=== PATIENT | female | born 1950 | race Caucasian/White ===

== ENCOUNTER 2017-05-07 10:20 | Observation (INO) | payer MEDICARE, MEDICAID ==
[~2017-05-07] VITALS: Ht 160 cm; Wt 113.5 kg
[2017-05-07 10:21] VITALS: BP 163/86; PULSE 66; RESP 16; TEMP 97.8; O2SAT 98
[2017-05-07] MEDS ORDERED: SODIUM CHLORIDE 0.9% FLUSH 10 ML FLUSH IVF PRN (11:15)
[2017-05-07 11:21] VITALS: O2SAT 98
[2017-05-07] MEDS ORDERED: SODIUM CHLOR 0.9% 1000 ML INJ 1,000 ML IV ONE (11:30)
--- NOTE | 2017-05-07 11:34 | PD ---
HPI Chief Complaint: Neuro Symptoms/ Deficits Time Seen by Provider: 11:08 Travel History International Travel<30 days: No Contact w/Intl Traveler<30days: No Traveled to known affect area: No History of Present Illness HPI 67-year-old female with a history of diabetes presents emergency department multiple medical complaints. Son is present to assist with the history. Son states that patient has had weakness, facial droop, slurred speech, and altered mental status is about 5 PM last night. Pt says she has a dry mouth which is the reason for her She says that she fell 3 days ago landing on her butt and hitting the back of her head. Says this is also when she had a fracture to her right ankle. The patient has been evaluated for this and was advised weightbearing as tolerated and follow-up with orthopedic patient denies loss of consciousness, headache or blurred vision. Says that she does feel dizzy however, this has been chronic she believes secondary to her medications. She has been receiving antibiotics via left PICC line and her last dose was 2 weeks ago. Patient is currently on doxycycline for her left foot wounds (diabetic wound). 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 Patient follows Dr. Graves for her foot wounds, Dr. Pennington for infectious disease and Dr. Barker for her family physician. She denies fever, chills, chest pain, shortness of breath. PFSH Past Medical History Diabetes: Yes ?: Not Social History Alcohol Use: No Tobacco Use: No Substance Use: No Allergies-Medications (Allergen,Severity, Reaction): Coded Allergies: amoxicillin (Verified Allergy, Mild, 05/07/17) metformin (Verified Allergy, Mild, 05/07/17) Reported Meds & Prescriptions Reported Meds & Active Scripts Active Reported Ventolin Hfa 18 GM Inh (Albuterol Sulfate) 90 Mcg/Act Aer 2 Puff INH Q4H PRN Carafate (Sucralfate) 1 Gram Tab 1 Gm PO TID On empty stomach Omeprazole 20 Mg Tab 20 Mg PO DAILY Novolog Flexpen Inj (Insulin Aspart) 300 Unit/3 Ml Pen SQ TIDAC PER SLIDING SCALE/MAX 30 UNITS DAILY Lisinopril 40 Mg Tab 40 Mg PO DAILY Lantus Solostar Pen Inj (Insulin Glargine) 300 Unit/3 Ml Pen 80 Units SQ BID Gentamicin Topical 0.1% Cream 1 Applic TOPICAL 3-4 TIMES DAILY Apply to foot Gabapentin 600 Mg Tab 600 Mg PO TID Ferrous Sulfate 325 Mg (65 Mg Iron) Tablet 325 Mg PO DAILY Catapres (Clonidine) 0.1 Mg Tab 0.1 Mg PO BID Lipitor (Atorvastatin Calcium) 10 Mg Tab 10 Mg PO HS Review of Systems Except as stated in HPI: all other systems reviewed are Neg Physical Exam Narrative GENERAL: Well-developed well-nourished, in no apparent distress SKIN: Focused skin assessment warm/dry. Left foot-5 cm round ulcerated wound to the heel with minimum exudate, no surrounding erythema or edema-no if angiopathic spread Left anterior foot ankle-serous drainage with granulation of the wound edges Right foot-an ankle brace, plantar aspect of right first MTP, large callus HEAD: Atraumatic. Normocephalic. EYES: Pupils round and reactive. No scleral icterus. No injection or drainage. Left pupil approximately 3 mm, right pupil 2 mm. EOMI ENT: No nasal bleeding or discharge. Mucous membranes pink and dry NECK: Trachea midline. No JVD. No lymphadenopathy. No midline tenderness CARDIOVASCULAR: Regular rate and rhythm. No murmur appreciated. RESPIRATORY: No accessory muscle use. Clear to auscultation. Breath sounds equal bilaterally. GASTROINTESTINAL: Abdomen soft, non-tender, nondistended. MUSCULOSKELETAL: No obvious deformities. No clubbing. No cyanosis. No edema. Grade 5 out of 5 strength, upper and lower extremities. Slightly weaker right hip flexion but 5 out of 5 patient. Negative pronator drift NEUROLOGICAL: Awake and alert. No obvious cranial nerve deficits. Motor grossly within normal limits. Normal speech. PSYCHIATRIC: Appropriate mood and affect; insight and judgment normal. Data Data Last Documented VS Vital Signs Date Time Temp Pulse Resp B/P (MAP) Pulse Ox O2 Delivery O2 Flow Rate FiO2 05/07/17 13:12 74 17 221/95 (137) 100 Room Air 05/07/17 10:21 97.8 Orders Orders Sepsis Workup Initiated (05/07/17 ) Electrocardiogram (05/07/17 11:08) Complete Blood Count With Diff (05/07/17 11:08) Comprehensive Metabolic Panel (05/07/17 11:08) Prothrombin Time / Inr (Pt) (05/07/17 11:08) Act Partial Throm Time (Ptt) (05/07/17 11:08) Lactic Acid Sepsis Protocol (05/07/17 11:08) Magnesium (Mg) (05/07/17 11:08) Ckmb (Isoenzyme) Profile (05/07/17 11:08) Troponin I (05/07/17 11:08) Urinalysis - C+S If Indicated (05/07/17 11:08) Blood Culture (05/07/17 11:08) Chest, Single Ap (05/07/17 11:08) Blood Glucose (05/07/17 11:08) Ecg Monitoring (05/07/17 11:08) Iv Access Insert/Monitor (05/07/17 11:08) Oximetry (05/07/17 11:08) Ct Brain W/O Iv Contrast(Rout) (05/07/17 11:08) Ct Cerv Spine W/O Contrast (05/07/17 11:08) Sodium Chloride 0.9% Flush (Ns Flush) (05/07/17 11:15) Spine, Lumbar - Ltd (Ap & Lat) (05/07/17 ) Sodium Chlor 0.9% 1000 Ml Inj (Ns 1000 M (05/07/17 11:30) Hydralazine Inj (Apresoline Inj) (05/07/17 13:30) Vancomycin Inj (Vancomycin Inj) (05/07/17 13:45) Ertapenem Inj (Invanz Inj) (05/07/17 13:45) Urine Culture (05/07/17 13:30) Lidocaine 1% Inj (Xylocaine 1% Inj) (05/07/17 14:15) Consult Infectious Disease (05/07/17 ) Consult Neurology (05/07/17 ) Echo 2d Comp With Doppler (05/07/17 ) Us Carotid Arteries Comp Bilat (05/07/17 ) Place In Observation (05/07/17 ) Vital Signs (Adult) Q4H (05/07/17 14:15) Station Operator / Telemetry .CONTINUOUS (05/07/17 14:15) Intake + Output ADONIS.QSHIFT (05/07/17 14:15) Sodium Chlor 0.9% 1000 Ml Inj (Ns 1000 M (05/07/17 14:15) Sodium Chloride 0.9% Flush (Ns Flush) (05/07/17 14:15) Sodium Chloride 0.9% Flush (Ns Flush) (05/07/17 21:00) Acetaminophen (Tylenol) (05/07/17 14:15) Ondansetron Inj (Zofran Inj) (05/07/17 14:15) Resp Oxygen Yair C Titrat 1-4 L (05/07/17 ) Pt Request For Service (05/07/17 14:15) Case Management Consult (05/07/17 14:15) Enoxaparin Inj (Lovenox Inj) (05/07/17 15:00) Scd Bilateral/Knee High ADONIS.BID (05/07/17 14:15) Jagdeep Bilateral/Knee High ADONIS.QSHIFT (05/07/17 14:15) Naloxone Inj (Narcan Inj) (05/07/17 14:15) Docusate Sodium-Senna (Mariaa-Colace) (05/07/17 21:00) Magnesium Hydroxide Liq (Milk Of Magnesi (05/07/17 15:00) Sennosides (Senokot) (05/07/17 14:15) Bisacodyl Supp (Dulcolax Supp) (05/07/17 14:15) Lactulose Liq (Lactulose Liq) (05/07/17 15:00) Lactic Acid Sepsis Protocol (05/07/17 14:15) Vancomycin Consult Pharmacy (Vancomycin (05/07/17 14:30) Ertapenem Inj (Invanz Inj) (05/08/17 09:00) Bedside Glucose ADONIS.CSUGAR (05/07/17 14:20) Blood Glucose Goal (Criteria) (05/07/17 14:20) Hypoglycemia 70 Mg/Dl Or < (05/07/17 14:20) Notify Dr: Other (05/07/17 14:20) Dextrose 50% In Alphonse (Vial) Inj (D50w (Vi (05/07/17 14:30) Glucagon Inj (Glucagon Inj) (05/07/17 14:30) Insulin Aspart Supplemtl Scale (Novolog (05/07/17 17:00) Admit Order (Ed Use Only) (05/07/17 14:15) D/C Picc Line (05/07/17 14:20) Catheter Tip Culture (05/07/17 14:20) Labs Laboratory Tests Test 05/07/17 11:19 05/07/17 12:30 05/07/17 13:30 White Blood Count 12.7 TH/MM3 Red Blood Count 5.18 MIL/MM3 Hemoglobin 12.8 GM/DL Hematocrit 40.0 % Mean Corpuscular Volume 77.2 FL Mean Corpuscular Hemoglobin 24.7 PG Mean Corpuscular Hemoglobin Concent 32.0 % Red Cell Distribution Width 19.6 % Platelet Count 380 TH/MM3 Mean Platelet Volume 7.6 FL Neutrophils (%) (Auto) 70.6 % Lymphocytes (%) (Auto) 19.1 % Monocytes (%) (Auto) 7.9 % Eosinophils (%) (Auto) 1.9 % Basophils (%) (Auto) 0.5 % Neutrophils # (Auto) 9.0 TH/MM3 Lymphocytes # (Auto) 2.4 TH/MM3 Monocytes # (Auto) 1.0 TH/MM3 Eosinophils # (Auto) 0.2 TH/MM3 Basophils # (Auto) 0.1 TH/MM3 CBC Comment DIFF FINAL Differential Comment Erythrocyte Sedimentation Rate 36 mm/hr Blood Urea Nitrogen 22 MG/DL Creatinine 1.59 MG/DL Random Glucose 198 MG/DL Total Protein 7.6 GM/DL Albumin 2.9 GM/DL Calcium Level 9.0 MG/DL Magnesium Level 1.6 MG/DL Alkaline Phosphatase 204 U/L Aspartate Amino Transf (AST/SGOT) 25 U/L Alanine Aminotransferase (ALT/SGPT) 30 U/L Total Bilirubin 0.4 MG/DL Sodium Level 135 MEQ/L Potassium Level 4.9 MEQ/L Chloride Level 101 MEQ/L Carbon Dioxide Level 25.9 MEQ/L Anion Gap 8 MEQ/L Estimat Glomerular Filtration Rate 32 ML/MIN Lactic Acid Level 2.3 mmol/L Total Creatine Kinase 48 U/L Troponin I 0.03 NG/ML Prothrombin Time 10.5 SEC Prothromb Time International Ratio 1.0 RATIO Activated Partial Thromboplast Time 25.0 SEC Urine Color YELLOW Urine Turbidity HAZY Urine pH 6.5 Urine Specific [place] 1.016 Urine Protein 300 mg/dL Urine Glucose (UA) NEG mg/dL Urine Ketones NEG mg/dL Urine Occult Blood SMALL Urine Nitrite POS Urine Bilirubin NEG Urine Urobilinogen LESS THAN 2.0 MG/DL Urine Leukocyte Esterase LARGE Urine RBC 4 /hpf Urine WBC /hpf Urine WBC Clumps MANY Urine Squamous Epithelial Cells <1 /hpf Urine Transitional Epithelial Cells 1 /hpf Urine Bacteria MANY /hpf Urine Hyaline Casts 17 /lpf Urine Mucus FEW /lpf Microscopic Urinalysis Comment CATH-CULTURE IND MDM Medical Decision Making Medical Screen Exam Complete: Yes Emergency Medical Condition: Yes Differential Diagnosis ICH, hypoglycemia, TIA, CVA Narrative Course 67-year-old female with a history of diabetes presents emergency department multiple medical complaints. Son is present to assist with the history. Son states that patient has had weakness, facial droop, slurred speech, and altered mental status is about 5 PM last night. Pt says she has a dry mouth which is the reason for her She says that she fell 3 days ago landing on her butt and hitting the back of her head. Says this is also when she had a fracture to her right ankle. The patient has been evaluated for this and was advised weightbearing as tolerated and follow-up with orthopedic patient denies loss of consciousness, headache or blurred vision. Says that she does feel dizzy however, this has been chronic she believes secondary to her medications. She has been receiving antibiotics via left PICC line and her last dose was 2 weeks ago. Patient is currently on doxycycline for her left foot wounds (diabetic wound). 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 Patient follows Dr. Graves for her foot wounds, Dr. Pennington for infectious disease and Dr. Barker for her family physician. He denies fever, chills, chest pain, shortness of breath. Vital signs stable. Physical exam findings can significant for anisocoria, pupils round reactive to light, right foot diabetic ulcers. I do not have previous records on this patient. This is the patient's first encounter at this hospital. EKG shows sinus rhythm without STEMI changes. T-wave inversions in lead I, aVL , V3-V6. no previous tracing for comparison. POC BGL [address] 05/07/17 1108 Signed Impressions: Service Date/Time: Sunday, May 07, 2017 11:30 - CONCLUSION: No acute disease. Andres Daly Jr., MD Cervical Spine CT 05/07/17 1108 Signed Impressions: Service Date/Time: Sunday, May 07, 2017 11:30 - CONCLUSION: 1. No fracture or dislocation. 2. Degenerative changes as detailed above. Andres Daly Jr., MD Lumbar Spine X-Ray 05/07/17 0000 Signed Impressions: Service Date/Time: Sunday, May 07, 2017 12:10 - CONCLUSION: 1. No acute lumbar spine abnormality is identified. There is degenerative disc disease at L4-L5 and L5-S1 along with facet arthrosis. 2. There is 10 mm of anterolisthesis of L5 on S1. 3. Severe atherosclerotic disease. Travis Conrad MD Patient started on Vancomycin and Invanz as this was patient's previous infusion and she does have an allergy to amoxicillin.. 1 L IV fluids administered. After further discussion with the son, it appears that patient has had a fluctuating mental status with confusion since yesterday. He states that she has been repetitive with her words it is not completely make sense. I explained that my findings did not demonstrate confusion however, based on the history and physical along with lab findings I recommend patient be placed in observation for IV antibiotics, diabetic ulcer, r/o sepsis. Blood pressure became elevated, hydralazine administered as she was complaining of a mild, waxing and waning headache. Note that she only takes clonidine for her blood pressure. Pt will be admitted for obs. Sepsis Criteria SIRS Criteria (2 or more): WBC > 22193, < 4000 or > 10% bands Sepsis Criteria (SIRS+source): Infect source susp/known (Left diabetic ulcer) Severe Sepsis (+one): Lactate >2 Diagnosis Primary Impression: Diabetic ulcer of foot, limited to breakdown of skin Qualified Codes: E11.621 - Type 2 diabetes mellitus with foot ulcer; L97.421 - Non-pressure chronic ulcer of left heel and midfoot limited to breakdown of skin Additional Impression: Altered mental status Qualified Codes: R41.82 - Altered mental status, unspecified Admitting Information Admitting Physician Requests: Observation Condition: Stable Amita Azevedo May 07, 2017 11:34
--- NOTE | 2017-05-07 11:41 | RADRPT ---
EXAM DATE/TIME: 05/07/2017 11:30 [facility] COMPARISON: No previous studies available for comparison. INDICATIONS : Trauma, fall three days ago. RADIATION DOSE: 34.63 CTDIvol (mGy) MEDICAL HISTORY : Diabetes mellitus type 2. SURGICAL HISTORY : None. ENCOUNTER: Initial ACUITY: 1 day PAIN SCALE: 0/10 LOCATION: cranial TECHNIQUE: Multiple contiguous axial images were obtained of the head. Using automated exposure control and adj ustment of the mA and/or kV according to patient size, radiation dose was kept as low as reasonably a chievable to obtain optimal diagnostic quality images. DICOM format image data is available electro nically for review and comparison. FINDINGS: CEREBRUM: The ventricles are normal for age. No evidence of midline shift, mass lesion, hemorrhage or acute in farction. No extra-axial fluid collections are seen. POSTERIOR FOSSA: The cerebellum and brainstem are intact. The 4th ventricle is midline. The cerebellopontine angle i s unremarkable. EXTRACRANIAL: The visualized portion of the orbits is intact. SKULL: The calvaria is intact. No evidence of skull fracture. CONCLUSION: No acute disease. Andres Daly Jr., MD on May 07, 2017 at 11:36 Board Certified Radiologist. This report was verified electronically.
[2017-05-07 12:02] LABS: LACTIC ACID SEPSIS PROTOCOL 2.3 mmol/L (0.4-2.0)
[2017-05-07 12:10] LABS: ALBUMIN 2.9 GM/DL (3.4-5.0); ALT (GPT) 30 U/L (10-53); AST (GOT) 25 U/L (15-37); BICARBONATE 25.9 MEQ/L (21.0-32.0); BLOOD UREA NITROGEN 22 MG/DL (7-18); CHLORIDE 101 MEQ/L (98-107); CREATININE 1.59 MG/DL (0.50-1.00); GLOMERULAR FILTRATION RATE 32 ML/MIN (>89); GLUCOSE,RANDOM 198 MG/DL (74-106); MAGNESIUM 1.6 MG/DL (1.5-2.5); SODIUM (NA) 135 MEQ/L (136-145)
[2017-05-07 12:12] LABS: ALKALINE PHOSPHATASE 204 U/L (45-117); TOTAL BILIRUBIN ADULT 0.4 MG/DL (0.2-1.0); TOTAL PROTEIN 7.6 GM/DL (6.4-8.2); TROPONIN I 0.03 NG/ML (0.02-0.05)
--- NOTE | 2017-05-07 12:13 | RADRPT ---
EXAM DATE/TIME: 05/07/2017 11:30 [facility] COMPARISON: No previous studies available for comparison. INDICATIONS : Trauma, fall three days ago. RADIATION DOSE: 27.40 CTDIvol (mGy) MEDICAL HISTORY : Diabetes mellitus type 2. SURGICAL HISTORY : None. ENCOUNTER: Initial ACUITY: 3 days PAIN SCALE: 0/10 LOCATION: neck TECHNIQUE: Volumetric scanning of the cervical spine was performed. Multiplanar reconstructions in the sagittal, coronal and oblique axial planes were performed. Using automated exposure control and adjustment o f the mA and/or kV according to patient size, radiation dose was kept as low as reasonably achievable to obtain optimal diagnostic quality images. DICOM format image data is available electronically f or review and comparison. FINDINGS: VERTEBRAE: Normal vertebral body height. ALIGNMENT: There is loss of the natural lordosis with a gentle kyphosis centered at C5. A mild grade 1 anterolis thesis of C4 on C5. Calcified plaque involving the carotid arteries bilaterally. 1 cm low-density nodule involving the ri ght lobe of the thyroid. C2-C3: The bony spinal canal is normal in size. No evidence of disc bulge or herniation. The neural forami na are bilaterally patent. C3-C4: No disc bulge or protrusion. Central canal is patent. Prominent bony uncovertebral hypertrophy on the left generating moderate left neural foraminal narrowing. The right remains patent. C4-C5: There is an anterolisthesis with broad-based disc osteophyte complex slightly eccentric to the left w ith mild narrowing of the left lateral recess. No abutment of the cord or central canal stenosis. Rig ht lateral recess remains patent. Bony uncovertebral hypertrophy generates mild right and moderate le ft neural foraminal narrowing. C5-C6: Disc space narrowing with a broad-based disc osteophyte complex slightly eccentric to the left with a butment of the cord. Narrowing of the lateral recesses bilaterally. Bony uncovertebral hypertrophy ge nerates moderate bilateral neural foraminal narrowing. C6-C7: The bony spinal canal is normal in size. No evidence of disc bulge or herniation. The neural forami na are bilaterally patent. C7-T1: The bony spinal canal is normal in size. No evidence of disc bulge or herniation. The neural forami na are bilaterally patent. CONCLUSION: 1. No fracture or dislocation. 2. Degenerative changes as detailed above. Andres Daly Jr., MD on May 07, 2017 at 12:07 Board Certified Radiologist. This report was verified electronically.
--- NOTE | 2017-05-07 12:28 | RADRPT ---
EXAM DATE/TIME: 05/07/2017 12:10 [facility] COMPARISON: No previous studies available for comparison. INDICATIONS : Lower back pain post fall. MEDICAL HISTORY : Diabetes mellitus type II. SURGICAL HISTORY : None. ENCOUNTER: Initial ACUITY: 1 week PAIN SCORE: 9/10 LOCATION: Bilateral lower back FINDINGS: 3 views of the lumbar spine demonstrate 5 [id number] lumbar vertebral bodies. The bones appear u nder mineralized. No fracture or compression deformity is present. There is 10 mm of anterolisthesis of L5 on S1. No definite pars defects are seen but no oblique views were obtained. There is facet hyp ertrophy at L4-L5 and L5-S1. Mild decreased disc height is present at L4-L5 and there is severe decre ased disc height at L5-S1. The pelvic bones and soft tissues demonstrate no acute finding. Bowel staple line overlies the left m idabdomen. There is severe atherosclerotic disease of the abdominal aorta and common iliac arteries. CONCLUSION: 1. No acute lumbar spine abnormality is identified. There is degenerative disc disease at L4-L5 and L 5-S1 along with facet arthrosis. 2. There is 10 mm of anterolisthesis of L5 on S1. 3. Severe atherosclerotic disease. Travis Conrad MD on May 07, 2017 at 12:22 Board Certified Radiologist. This report was verified electronically.
[2017-05-07 12:51] LABS: BASOPHIL # 0.1 TH/MM3 (0-0.2); BASOPHIL % 0.5 % (0.0-2.0); EOSINOPHIL # 0.2 TH/MM3 (0-0.4); EOSINOPHIL % 1.9 % (0.0-4.0); HEMOGLOBIN 12.8 GM/DL (11.6-15.3); LYMPH % 19.1 % (9.0-44.0); LYMPHOCYTE # 2.4 TH/MM3 (1.0-4.8); MEAN CELL VOLUME 77.2 FL (80.0-100.0); MEAN CORPUSCULAR HEMOGLOBIN 24.7 PG (27.0-34.0); MEAN PLATELET VOLUME 7.6 FL (7.0-11.0); MONO % 7.9 % (0.0-8.0); NEUT % 70.6 % (16.0-70.0); PLATELET COUNT 380 TH/MM3 (150-450); RED BLOOD COUNT 5.18 MIL/MM3 (4.00-5.30); RED CELL DISTRIBUTION WIDTH 19.6 % (11.6-17.2); WHITE BLOOD COUNT 12.7 TH/MM3 (4.0-11.0)
[2017-05-07 13:03] LABS: PROTHROMBIN TIME - PATIENT 10.5 SEC (9.8-11.6)
[2017-05-07 13:12] VITALS: BP 221/95; PULSE 74; RESP 17; O2SAT 100
--- NOTE | 2017-05-07 13:20 | RADRPT ---
EXAM DATE/TIME: 05/07/2017 12:12 [facility] COMPARISON: No previous studies available for comparison. INDICATIONS : Shortness of breath. MEDICAL HISTORY : Diabetes mellitus type II. SURGICAL HISTORY : None. ENCOUNTER: Initial ACUITY: 1 year PAIN SCORE: 0/10 LOCATION: Bilateral chest FINDINGS: Presumed left-sided PICC line with tip in the brachiocephalic/SVC junction. No significant focal pleu ral or parenchymal opacities. Cardiomediastinal contours are within normal limits given portable tech nique. Bony thorax is intact. CONCLUSION: 1. No acute cardiopulmonary disease. Joseph Alvarez MD on May 07, 2017 at 13:16 Board Certified Radiologist. This report was verified electronically.
[2017-05-07] MEDS ORDERED: hydrALAZINE HCL 20 MG/ML VIAL IV PUSH ONE ×2 (13:30→15:00)
[2017-05-07] MEDS ORDERED: ERTAPENEM SODIUM 1000 MG VIAL IM ONE (13:45)
[2017-05-07] MEDS ORDERED: VANCOMYCIN INJ 1,750 MG in SODIUM CHLORID 0.9% 500 ML INJ 500 ML IV ONE (13:45)
[2017-05-07] MEDS ORDERED: CLON.1 PO (13:58)
[2017-05-07] MEDS ORDERED: NOVOINJ3 SQ (13:58)
[2017-05-07] MEDS ORDERED: LIPI10TA PO (13:58)
[2017-05-07] MEDS ORDERED: CARA1TAB6 PO (13:58)
[2017-05-07] MEDS ORDERED: OMEP20TA93 PO (13:58)
[2017-05-07] MEDS ORDERED: LANTINJ SQ (13:58)
[2017-05-07] MEDS ORDERED: GENT0.1C TOPICAL (13:58)
[2017-05-07] MEDS ORDERED: VENTAER INH (13:58)
[2017-05-07] MEDS ORDERED: GABA600T PO (13:58)
[2017-05-07] MEDS ORDERED: LISI40TA PO (13:58)
[2017-05-07] MEDS ORDERED: FERR325T18 PO (13:58)
[2017-05-07 14:12] LABS: BACTERIA, URINE MANY /hpf; BILIRUBIN, URINE NEG (NEG); BLOOD, URINE SMALL (NEG); GLUCOSE,URINE NEG (NEG); HYALINE CAST, URINE 17 /lpf (RARE); KETONE, URINE NEG (NEG); MUCUS URINE FEW /lpf (OCC); NITRITE,URINE POS (NEG); PH, URINE 6.5 (5.0-8.5); SQUAMOUS EPITHELIAL CELL URINE <1 /hpf (0-5); TRANSITIONAL EPI CELLS, URINE 1 /hpf; URINE COLOR YELLOW (YELLW/STRAW); URINE LEUKOCYTE ESTERASE LARGE (NEG); WHITE BLOOD CELL CLUMPS MANY
[2017-05-07] MEDS ORDERED: BISACODYL 10 MG SUPP RECTAL PRN (14:15)
[2017-05-07] MEDS ORDERED: ACETAMINOPHEN 325 MG TAB PO PRN (14:15)
[2017-05-07] MEDS ORDERED: LIDOCAINE HCL 1% 20 ML VIAL INFIL ONE (14:15)
[2017-05-07] MEDS ORDERED: SODIUM CHLORIDE 0.9% FLUSH 10 ML FLUSH IV FLUSH PRN (14:15)
[2017-05-07] MEDS ORDERED: SODIUM CHLOR 0.9% 1000 ML INJ 1,000 ML IV SCH (14:15)
[2017-05-07] MEDS ORDERED: NALOXONE HCL 0.4 MG/ML AMP IV PUSH PRN (14:15)
[2017-05-07] MEDS ORDERED: ONDANSETRON HCL 4 MG/2 ML VIAL IVP PRN (14:15)
[2017-05-07] MEDS ORDERED: SENNOSIDES 8.6 MG TAB PO PRN (14:15)
[2017-05-07] MEDS ORDERED: GLUCAGON 1 MG/ML VIAL OTHER PRN (14:30)
[2017-05-07] MEDS ORDERED: Vancomycin Consult Pharmacy 1 EA OTHER SCH (14:30)
[2017-05-07] MEDS ORDERED: ALBUTEROL SULFATE 90 MCG/ACT HFA 8 GM INHALER INH PRN (14:30)
[2017-05-07] MEDS ORDERED: DEXTROSE 50% IN WATER 50 ML VIAL(D50) IV PUSH PRN (14:30)
[2017-05-07 14:57] VITALS: BP 210/94; PULSE 87; RESP 18; O2SAT 98
[2017-05-07] MEDS ORDERED: ENOXAPARIN SODIUM 40 MG/0.4 ML SYRINGE SQ SCH (15:00)
[2017-05-07] MEDS ORDERED: LACTULOSE SYRUP 20 GM/30 ML CUP PO PRN (15:00)
[2017-05-07] MEDS ORDERED: VANCOMYCIN INJ 1,000 MG in SODIUM CHLOR 0.9% 250 ML INJ 250 ML IV SCH (15:00)
[2017-05-07] MEDS ORDERED: MAGNESIUM HYDROXIDE SUSP 30 ML CUP PO PRN (15:00)
--- NOTE | 2017-05-07 15:20 | HHI.HP ---
HPI Service [facility] Primary Care Physician Unknown Admission Diagnosis diabetic ulcer, r/o sepsis Diagnoses: Chief Complaint: Altered mental status, multiple falls, diabetic wounds Travel History International Travel<30 Days: No Contact w/Intl Traveler <30 Da: No Traveled to Known Affected Are: No History of Present Illness The patient is a very pleasant 67-year-old female with a history of diabetes mellitus with neuropathy, hypertension, hyperlipidemia, COPD, PAD with revascularization in the past, presents to the emergency department with multiple medical complaints. Son is present to assist with the history. Son states that patient has had weakness, facial droop, slurred speech, and altered mental status since about 5 PM last night. Pt says she has a dry mouth which is the reason for her to have this symptoms and also she has a recent cold. She says that she fell 3 days ago landing on her butt and hitting the back of her head. Says this is also when she had a fracture to her right ankle. The patient has been evaluated for this and was advised weightbearing as tolerated and follow-up with orthopedic as OP.Denies loss of consciousness, headache or blurred vision. Says that she does feel dizzy however, this has been chronic she believes secondary to her medications. She has been receiving antibiotics via left PICC line and her last dose was 2 weeks ago. Patient is currently on doxycycline for her left foot wounds (diabetic wound). 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 Patient follows Dr. Graves podiatry for her foot wounds, Dr. Pennington for infectious disease and Dr. Barker for her family physician. She denies fever, chills, chest pain, shortness of breath. Her speech is back to baseline at this time. She is also taking gabapentin and norco as OP. Review of Systems ROS Limitations: Clinical Condition Except as stated in HPI: all other systems reviewed are Neg Past Family Social History Past Medical History diabetes mellitus with neuropathy, hypertension, hyperlipidemia, COPD, PAD with revascularization in the past Past Surgical History Hysterectomy PAD with revascularization Hemicolectomy Left second toe amputation Reported Medications Reported Meds & Active Scripts Active Reported Ventolin Hfa 18 GM Inh (Albuterol Sulfate) 90 Mcg/Act Aer 2 Puff INH Q4H PRN Carafate (Sucralfate) 1 Gram Tab 1 Gm PO TID On empty stomach Omeprazole 20 Mg Tab 20 Mg PO DAILY Novolog Flexpen Inj (Insulin Aspart) 300 Unit/3 Ml Pen SQ TIDAC PER SLIDING SCALE/MAX 30 UNITS DAILY Lisinopril 40 Mg Tab 40 Mg PO DAILY Lantus Solostar Pen Inj (Insulin Glargine) 300 Unit/3 Ml Pen 80 Units SQ BID Gentamicin Topical 0.1% Cream 1 Applic TOPICAL 3-4 TIMES DAILY Apply to foot Gabapentin 600 Mg Tab 600 Mg PO TID Ferrous Sulfate 325 Mg (65 Mg Iron) Tablet 325 Mg PO DAILY Catapres (Clonidine) 0.1 Mg Tab 0.1 Mg PO BID Lipitor (Atorvastatin Calcium) 10 Mg Tab 10 Mg PO HS Allergies: Coded Allergies: amoxicillin (Verified Allergy, Mild, 05/07/17) metformin (Verified Allergy, Mild, 05/07/17) Family History Father had a stroke at age 50, also history of hypertension hyperlipidemia and diabetes Mother with heart problems Social History Quit smoking 25 years ago. Used to smoke 2 pack per day since the age of 14. Denies alcohol use or illicit drug use. Physical Exam Vital Signs Vital Signs Date Time Temp Pulse Resp B/P (MAP) Pulse Ox O2 Delivery O2 Flow Rate FiO2 05/07/17 14:57 87 18 210/94 (132) 98 05/07/17 13:12 74 17 221/95 (137) 100 Room Air 05/07/17 11:21 98 Room Air 05/07/17 10:59 100 Room Air 05/07/17 10:21 97.8 66 16 163/86 (111) 98 Room Air Physical Exam GENERAL: This is a very pleasant 67-year-old female, well-nourished, well- developed patient, in no apparent distress. SKIN:Left foot-5 cm round ulcerated wound to the heel with minimum exudate, no surrounding erythema or edema-no if angiopathic spread Left anterior foot ankle-serous drainage with granulation of the wound edges Right foot-an ankle brace, plantar aspect of right first MTP, large callus HEAD: Atraumatic. Normocephalic. No temporal or scalp tenderness. EYES: Pupils equal round and reactive. Extraocular motions intact. No scleral icterus. No injection or drainage. ENT: Nose without bleeding, purulent drainage or septal hematoma. Throat without erythema, tonsillar hypertrophy or exudate. Uvula midline. Airway patent. NECK: Trachea midline. No JVD or lymphadenopathy. Supple, nontender, no meningeal signs. CARDIOVASCULAR: Regular rate and rhythm without murmurs, gallops, or rubs. RESPIRATORY: Clear to auscultation. Breath sounds equal bilaterally. No wheezes , rales, or rhonchi. GASTROINTESTINAL: Abdomen soft, non-tender, nondistended. No hepato-splenomegaly , or palpable masses. No guarding. MUSCULOSKELETAL: Left second toe amputation. Extremities without clubbing, cyanosis, or edema. No joint tenderness, effusion, or edema noted. No calf tenderness. Negative Homans sign bilaterally. NEUROLOGICAL: Awake and alert. Cranial nerves II through XII intact. Motor and sensory grossly within normal limits. Five out of 5 muscle strength in all muscle groups. Normal speech. Laboratory Laboratory Tests Test 05/07/17 11:19 05/07/17 12:30 05/07/17 13:30 White Blood Count 12.7 Red Blood Count 5.18 Hemoglobin 12.8 Hematocrit 40.0 Mean Corpuscular Volume 77.2 Mean Corpuscular Hemoglobin 24.7 Mean Corpuscular Hemoglobin Concent 32.0 Red Cell Distribution Width 19.6 Platelet Count 380 Mean Platelet Volume 7.6 Neutrophils (%) (Auto) 70.6 Lymphocytes (%) (Auto) 19.1 Monocytes (%) (Auto) 7.9 Eosinophils (%) (Auto) 1.9 Basophils (%) (Auto) 0.5 Neutrophils # (Auto) 9.0 Lymphocytes # (Auto) 2.4 Monocytes # (Auto) 1.0 Eosinophils # (Auto) 0.2 Basophils # (Auto) 0.1 CBC Comment DIFF FINAL Differential Comment Blood Urea Nitrogen 22 Creatinine 1.59 Random Glucose 198 Total Protein 7.6 Albumin 2.9 Calcium Level 9.0 Magnesium Level 1.6 Alkaline Phosphatase 204 Aspartate Amino Transf (AST/SGOT) 25 Alanine Aminotransferase (ALT/SGPT) 30 Total Bilirubin 0.4 Sodium Level 135 Potassium Level 4.9 Chloride Level 101 Carbon Dioxide Level 25.9 Anion Gap 8 Estimat Glomerular Filtration Rate 32 Lactic Acid Level 2.3 Total Creatine Kinase 48 Troponin I 0.03 Prothrombin Time 10.5 Prothromb Time International Ratio 1.0 Activated Partial Thromboplast Time 25.0 Urine Color YELLOW Urine Turbidity HAZY Urine pH 6.5 Urine Specific [place] 1.016 Urine Protein 300 Urine Glucose (UA) NEG Urine Ketones NEG Urine Occult Blood SMALL Urine Nitrite POS Urine Bilirubin NEG Urine Urobilinogen LESS THAN 2.0 Urine Leukocyte Esterase LARGE Urine RBC 4 Urine WBC Urine WBC Clumps MANY Urine Squamous Epithelial Cells <1 Urine Transitional Epithelial Cells 1 Urine Bacteria MANY Urine Hyaline Casts 17 Urine Mucus FEW Microscopic Urinalysis Comment CATH-CULTURE IND Date/Time Source Procedure Growth Status 05/07/17 11:19 Blood Peripheral Aerobic Blood Culture Pending Received 05/07/17 11:19 Blood Peripheral Anaerobic Blood Culture Pending Received 05/07/17 13:30 Urine Catheterized Urine Urine Culture Pending Received Result Diagram: 05/07/17 1119 05/07/17 1119 Imaging Last Impressions Head CT 05/07/17 1108 Signed Impressions: Service Date/Time: Sunday, May 07, 2017 11:30 - CONCLUSION: No acute disease. Andres Daly Jr., MD Chest X-Ray 05/07/17 1108 Signed Impressions: Service Date/Time: Sunday, May 07, 2017 12:12 - CONCLUSION: 1. No acute cardiopulmonary disease. Joseph Alvarez MD Cervical Spine CT 05/07/17 1108 Signed Impressions: Service Date/Time: Sunday, May 07, 2017 11:30 - CONCLUSION: 1. No fracture or dislocation. 2. Degenerative changes as detailed above. Andres Daly Jr., MD Lumbar Spine X-Ray 05/07/17 0000 Signed Impressions: Service Date/Time: Sunday, May 07, 2017 12:10 - CONCLUSION: 1. No acute lumbar spine abnormality is identified. There is degenerative disc disease at L4-L5 and L5-S1 along with facet arthrosis. 2. There is 10 mm of anterolisthesis of L5 on S1. 3. Severe atherosclerotic disease. Travis Conrad MD Carotid Artery Ultrasound 05/07/17 0000 Signed Impressions: Service Date/Time: Sunday, May 07, 2017 15:36 - CONCLUSION: 1. Patent carotid arteries bilaterally. 2. Antegrade flow involving both vertebral arteries. MD Westley Carpenter Jr. VTE Risk Assessment Caprini VTE Risk Assessment: Mod/High Risk (score >= 2) Caprini Risk Assessment Model Point Value = 1 Point Value = 2 Point Value = 3 Point Value = 5 Age 41-60 Minor surgery BMI > 25 kg/m2 Swollen legs Varicose veins or History of unexplained or recurrent spontaneous Oral contraceptives or hormone replacement Sepsis (< 1 month) Serious lung disease, including pneumonia (< 1 month) Abnormal pulmonary function Acute myocardial infarction Congestive heart failure (< 1 month) History of inflammatory bowel disease Medical patient at bed rest Age 61-74 Arthroscopic surgery Major open surgery (> 45 min) Laparoscopic surgery (> 45 min) Malignancy Confined to bed (> 72 hours) Immobilizing plaster cast Central venous access Age >= 75 History of VTE Family history of VTE Factor V Leiden Prothrombin [id number] Lupus anticoagulant Anticardiolipin antibodies Elevated serum homocysteine Heparin-induced thrombocytopenia Other congenital or acquired thrombophilia Stroke (< 1 month) Elective arthroplasty Hip, pelvis, or leg fracture Acute spinal cord injury (< 1 month) Prophylaxis Regimen Total Risk Factor Score Risk Level Prophylaxis Regimen 0-1 Low Early ambulation 2 Moderate Order ONE of the following: *Sequential Compression Device (SCD) *Heparin 5000 units SQ BID 3-4 Higher Order ONE of the following medications: *Heparin 5000 units SQ TID *Enoxaparin/Lovenox 40 mg SQ daily (WT < 150 kg, CrCl > 30 mL/min) *Enoxaparin/Lovenox 30 mg SQ daily (WT < 150 kg, CrCl > 10-29 mL/min) *Enoxaparin/Lovenox 30 mg SQ BID (WT < 150 kg, CrCl > 30 mL/min) AND/OR *Sequential Compression Device (SCD) 5 or more Highest Order ONE of the following medications: *Heparin 5000 units SQ TID (Preferred with Epidurals) *Enoxaparin/Lovenox 40 mg SQ daily (WT < 150 kg, CrCl > 30 mL/min) *Enoxaparin/Lovenox 30 mg SQ daily (WT < 150 kg, CrCl > 10-29 mL/min) *Enoxaparin/Lovenox 30 mg SQ BID (WT < 150 kg, CrCl > 30 mL/min) AND *Sequential Compression Device (SCD) Assessment and Plan Assessment and Plan 67-year-old female presents to the emergency department with multiple medical complaints. Diabetic ulcer of foot Possible sepsis patient with leukocytosis, elevated lactic acid, tachycardic, source of infection possible left diabetic foot wound, UTI. Patient was recently on antibiotics vancomycin and Invanz she finish course of IV antibiotics 2 weeks ago. Follows with Dr. Estrada infectious disease as outpatient. Patient has a PICC line. Concern for infection. Discontinue PICC line and send tip for cultures. Check blood cultures, urine cultures. Monitor vital signs. Repeat lactic acid. Start Invanz and vancomycin IV. Consult infectious disease specialist. Start on IV fluids Consult podiatry Acute encephalopathy likely secondary to infection, dehydration. Start IV fluids. Infection management as above. Patient also with syncope and multiple falls. Check 2D echo and ultrasound of the carotids. Check B12 Percent patient also has slurred speech and right facial droop prior to admission. TIA rule out CVA. Symptoms however resolved. CT scan of the head reviewed and no acute findings. Consult neurology, appreciate recommendations. Check EEG, MRI. Hypertension. Uncontrolled on admission. Restart home medications. Vasotec as needed. Metoprolol as needed. Monitor vital signs and adjust medications as needed. Diabetes mellitus insulin-dependent. Resume home insulin as appropriate, Accu- Cheks, insulin sliding scale Hyperlipidemia. Restart home medications History of PAD with revascularization. Restart home medications. DVT prophylaxis Lovenox subcu Discussed Condition With Patient, nurse, ED physician/Gerda Inman MD May 07, 2017 15:20
[2017-05-07 16:14] VITALS: BP 147/42; PULSE 114; RESP 18; O2SAT 98
--- NOTE | 2017-05-07 16:24 | RADRPT ---
EXAM DATE/TIME: 05/07/2017 15:36 [place] COMPARISON: No previous studies available for comparison. INDICATIONS : Syncope. MEDICAL HISTORY : Diabetes. Weakness. Facial droop. Slurred speech. Altered mental status. SURGICAL HISTORY : None. ENCOUNTER: Initial ACUITY: 1 day PAIN SCORE: 5/10 LOCATION: Bilateral neck PEAK SYSTOLIC VELOCITIES (cm/sec): ICA/CCA RATIO: Right: 1.1 Left: 1.0 ICA: Right: 114 Left: 103 CCA: Right: 102 Left: 103 ECA: Right: 143 Left: 124 VERTEBRAL: Right: 49 antegrade Left: 101 antegrade Elevated flow velocities and ICA/CCA ratios have been found to correlate with increased degrees of vessel stenosis, calculated as percentage of diameter relative to a normal segment of distal ICA/CCA FINDINGS: RIGHT CAROTID: Scattered atherosclerotic plaque throughout the carotid bulb and proximal ICA. No significant stenosi s is visualized. The waveforms are within normal limits. LEFT CAROTID: Scattered atherosclerotic plaque throughout the common carotid and proximal ICA. No significant steno sis is visualized. The waveforms are within normal limits. VERTEBRAL ARTERIES: Antegrade flow is seen in both vertebral arteries. MISCELLANEOUS: None. CONCLUSION: 1. Patent carotid arteries bilaterally. 2. Antegrade flow involving both vertebral arteries. Andres Daly Jr., MD on May 07, 2017 at 16:20 Board Certified Radiologist. This report was verified electronically.
--- NOTE | 2017-05-07 16:54 | PD.CONS ---
History of Present Illness Service Neurology Consult Requested By medical Reason for Consult confusion Primary Care Physician Unknown History of Present Illness 67-year-old female with hx of dm admitted for various symptoms. c/o of weakness , speech changes since yesterday. seen by id. found to have a uti. renal failure. pt c/o of nausea, tremulousness. denies hx of etoh use. bp in er 212/95 at one point. PFSH Past Medical History Diabetes: Yes HTN HLD COPD GERD Social History Alcohol Use: No Tobacco Use: No Substance Use: No Allergies-Medications (Allergen,Severity, Reaction): Coded Allergies: amoxicillin (Verified Allergy, Mild, 05/07/17) metformin (Verified Allergy, Mild, 05/07/17) Reported Meds & Prescriptions Reported Meds & Active Scripts Active Reported Ventolin Hfa 18 GM Inh (Albuterol Sulfate) 90 Mcg/Act Aer 2 Puff INH Q4H PRN Carafate (Sucralfate) 1 Gram Tab 1 Gm PO TID On empty stomach Omeprazole 20 Mg Tab 20 Mg PO DAILY Novolog Flexpen Inj (Insulin Aspart) 300 Unit/3 Ml Pen SQ TIDAC PER SLIDING SCALE/MAX 30 UNITS DAILY Lisinopril 40 Mg Tab 40 Mg PO DAILY Lantus Solostar Pen Inj (Insulin Glargine) 300 Unit/3 Ml Pen 80 Units SQ BID Gentamicin Topical 0.1% Cream 1 Applic TOPICAL 3-4 TIMES DAILY Apply to foot Gabapentin 600 Mg Tab 600 Mg PO TID Ferrous Sulfate 325 Mg (65 Mg Iron) Tablet 325 Mg PO DAILY Catapres (Clonidine) 0.1 Mg Tab 0.1 Mg PO BID Lipitor (Atorvastatin Calcium) 10 Mg Tab 10 Mg PO HS Review of Systems Except as stated in HPI: all other systems reviewed are Neg Review of Systems All other ROS: ROS reviewed as documented in chart Past Family Social History Allergies: Coded Allergies: amoxicillin (Verified Allergy, Mild, 05/07/17) metformin (Verified Allergy, Mild, 05/07/17) Active Ordered Medications Current Medications Medications (Trade) Dose Ordered Sig/Patel Route Start Time Stop Time Status Last Admin (NS Flush) 2 ml UNSCH PRN IVF 05/07/17 11:15 Sodium Chloride 1,000 ml @ 100 mls/hr Q10H IV 05/07/17 14:15 05/07/17 16:17 (NS Flush) 2 ml UNSCH PRN IV FLUSH 05/07/17 14:15 (NS Flush) 2 ml BID IV FLUSH 05/07/17 21:00 (Tylenol) 650 mg Q4H PRN PO 05/07/17 14:15 (Zofran Inj) 4 mg Q6H PRN IVP 05/07/17 14:15 (Lovenox Inj) 40 mg Q24H SQ 05/07/17 15:00 05/07/17 15:23 (Narcan Inj) 0.4 mg UNSCH PRN IV PUSH 05/07/17 14:15 (Mariaa-Colace) 1 tab BID PO 05/07/17 21:00 (Milk Of Magnesia Liq) 30 ml Q12H PRN PO 05/07/17 15:00 (Senokot) 17.2 mg Q12H PRN PO 05/07/17 14:15 (Dulcolax Supp) 10 mg DAILY PRN RECTAL 05/07/17 14:15 (Lactulose Liq) 30 ml DAILY PRN PO 05/07/17 15:00 Pharmacy Profile Note 0 ml @ 0 mls/hr UNSCH OTHER 05/07/17 14:30 (INVanz INJ) 1,000 mg DAILY IM 05/08/17 09:00 UNV (D50w (Vial) Inj) 50 ml UNSCH PRN IV PUSH 05/07/17 14:30 (Glucagon Inj) 1 mg UNSCH PRN OTHER 05/07/17 14:30 (NovoLOG SUPPLEMENTAL SCALE) 1 ACHS SLIDING SCALE SQ 05/07/17 17:00 (Proair Hfa Inh) 2 puff Q4H PRN INH 05/07/17 14:30 (Lipitor) 10 mg HS PO 05/07/17 21:00 (Catapres) 0.1 mg BID PO 05/07/17 21:00 (Ferrous Sulfate) 325 mg DAILY PO 05/08/17 09:00 (Neurontin) 600 mg TID PO 05/07/17 18:00 (Carafate) 1 gm TID PO 05/07/17 18:00 (Levemir Inj) 80 units BID SQ 05/07/17 21:00 (Prinivil) 40 mg DAILY PO 05/08/17 09:00 (Protonix) 20 mg DAILY PO 05/08/17 09:00 (Lac-Hydrin 12% Lotion) 1 applic BID TOPICAL 05/07/17 21:00 Exam I&O / VS 05/07/17 05/07/17 05/08/17 15:00 23:00 07:00 Intake Total 1000 ml Balance 1000 ml Intake IV Total 1000 ml Vital Signs Date Time Temp Pulse Resp B/P (MAP) Pulse Ox O2 Delivery O2 Flow Rate FiO2 05/07/17 16:14 114 18 147/42 (77) 98 Room Air 05/07/17 14:57 87 18 210/94 (132) 98 05/07/17 13:12 74 17 221/95 (137) 100 Room Air 05/07/17 11:21 98 Room Air 05/07/17 10:59 100 Room Air 05/07/17 10:21 97.8 66 16 163/86 (111) 98 Room Air General: Alert and Oriented, Mild distress Eye: EOMI Respiratory: Non-labored respirations Neurologic: Alert, Oriented Psychiatric: Cooperative Exam Comments alert, ox 2-3, obese, follows, articulate, nauseous, uncomfortable 2/2 to this , eomi, vff, face sym, pickett to gravity, mild le edema, reduced pin in irma le with bandaging, trace msr, no clonus, planterflexor Review/Management Diagnosis/Plan: (1) Encephalopathy ICD Codes: G93.40 - Encephalopathy, unspecified Status: Acute Plan: probable metabolic/htn urgency/uti related r/o posterior circulation infarct recs eeg mri brain bp control follow exam (2) UTI (urinary tract infection) ICD Codes: N39.0 - Urinary tract infection, site not specified Status: Acute Plan: iv abx id following (3) HTN (hypertension) ICD Codes: I10 - Essential (primary) hypertension Status: Acute (4) Diabetic ulcer of foot, limited to breakdown of skin ICD Codes: E11.621 - Type 2 diabetes mellitus with foot ulcer; L97.501 - Non- pressure chronic ulcer of other part of unspecified foot limited to breakdown of skin Status: Acute Problem Qualifiers (1) UTI (urinary tract infection): (2) HTN (hypertension): Qualified Codes: I10 - Essential (primary) hypertension (3) Diabetic ulcer of foot, limited to breakdown of skin: Qualified Codes: E11.621 - Type 2 diabetes mellitus with foot ulcer; L97.421 - Non-pressure chronic ulcer of left heel and midfoot limited to breakdown of skin Jose Raul Stanley MD May 07, 2017 16:54
[2017-05-07] MEDS ORDERED: INSULIN ASPART SUPPLEMENTAL SCALE SQ SCH (17:00)
--- NOTE | 2017-05-07 17:36 | PD.ID.CON ---
History of Present Illness Service ID Consult Requested By Dr Woodson Reason for Consult leukocytosis Primary Care Physician Unknown Diagnoses: History of Present Illness 67 yo female brittle diabetic with severe chronic DFIs infections and chronic osteo and PVD, pt of Dr Paez sp multiple months of abx treatmetn (Invanz, vancomycin) and revasc with cure of her osteo sp 2nd L toe amputation she developped malaise, fever and vague back pain x 4 days prior to presentation On presentation leukocytosis of 12.7 K , no fever, but prominent tachycardia and mildly elevated lactic acid co tremors UA markedly abnormal with innumerable WBC Clx P Pt co rare urination x 24 hrs co nausea, vomiting Review of Systems Except as stated in HPI: all other systems reviewed are Neg Past Family Social History Allergies: Coded Allergies: amoxicillin (Verified Allergy, Mild, 05/07/17) metformin (Verified Allergy, Mild, 05/07/17) Past Medical History DM DFI, osteo R ankle fracture Past Surgical History L 2n toe amputaion Active Ordered Medications ertapenem vancomycin Family History reviewed, non contributoryu Social History No Tobacco. No ETOH. No Illicit Drugs. Physical Exam Vital Signs Vital Signs Date Time Temp Pulse Resp B/P (MAP) Pulse Ox O2 Delivery O2 Flow Rate FiO2 05/07/17 16:14 114 18 147/42 (77) 98 Room Air 05/07/17 14:57 87 18 210/94 (132) 98 05/07/17 13:12 74 17 221/95 (137) 100 Room Air 05/07/17 11:21 98 Room Air 05/07/17 10:59 100 Room Air 05/07/17 10:21 97.8 66 16 163/86 (111) 98 Room Air Physical Exam CONSTITUTIONAL/GENERAL: This is a morbidly obese patient, in no apparent distress. TUBES/LINES/DRAINS: SKIN: No jaundice, rashes, or lesions. . Skin temperature appropriate. Not diaphoretic. HEAD: Atraumatic. Normocephalic. EYES: Pupils equal and round and reactive. Extraocular motions intact. No scleral icterus. No injection or drainage. Fundi not examined. ENT: Hearing grossly normal. Nose without bleeding or purulent drainage. Throat without visible erythema, exudates, masses, or lesions. poor dentition NECK: Trachea midline. Supple, nontender. No palpable thyroid enlargement or nodularity. CARDIOVASCULAR: Regular tachycardia and rhythm without murmurs, gallops, or rubs. No JVD. Peripheral pulses symmetric. RESPIRATORY/CHEST: Symmetric, unlabored respirations. Clear to auscultation. Breath sounds equal bilaterally. No wheezes, rales, or rhonchi. GASTROINTESTINAL: Abdomen soft, non-tender, nondistended. No hepato-splenomegaly , or palpable masses. No guarding. Bowel sounds present. GENITOURINARY: Without palpable bladder distension. No CVA tenderness b/l MUSCULOSKELETAL: Extremities without clubbing, cyanosis, or edema. No joint tenderness or effusion noted. No calf tenderness. No mottling or clubbing. R foot with dry crust over 1 MT head wound L foot stage 2-3 clean based heel wound, minimalm serous dc and stage 2-3 clean based wound on the top of the foot , minimal serous dc pls non palpable, but both feet are warm to touch and well perfused LYMPHATICS: No palpable cervical or supraclavicular adenopathy. NEUROLOGICAL: Awake and alert. Motor and sensory grossly within normal limits. Follows commands. Clear speech . Moves all extremities. PSYCHIATRIC: No obvious anxiety/depression. no apparent hallucinations or other psychotic thought process. Laboratory Laboratory Tests Test 05/07/17 11:19 05/07/17 12:30 05/07/17 13:30 White Blood Count 12.7 Red Blood Count 5.18 Hemoglobin 12.8 Hematocrit 40.0 Mean Corpuscular Volume 77.2 Mean Corpuscular Hemoglobin 24.7 Mean Corpuscular Hemoglobin Concent 32.0 Red Cell Distribution Width 19.6 Platelet Count 380 Mean Platelet Volume 7.6 Neutrophils (%) (Auto) 70.6 Lymphocytes (%) (Auto) 19.1 Monocytes (%) (Auto) 7.9 Eosinophils (%) (Auto) 1.9 Basophils (%) (Auto) 0.5 Neutrophils # (Auto) 9.0 Lymphocytes # (Auto) 2.4 Monocytes # (Auto) 1.0 Eosinophils # (Auto) 0.2 Basophils # (Auto) 0.1 CBC Comment DIFF FINAL Differential Comment Blood Urea Nitrogen 22 Creatinine 1.59 Random Glucose 198 Total Protein 7.6 Albumin 2.9 Calcium Level 9.0 Magnesium Level 1.6 Alkaline Phosphatase 204 Aspartate Amino Transf (AST/SGOT) 25 Alanine Aminotransferase (ALT/SGPT) 30 Total Bilirubin 0.4 Sodium Level 135 Potassium Level 4.9 Chloride Level 101 Carbon Dioxide Level 25.9 Anion Gap 8 Estimat Glomerular Filtration Rate 32 Lactic Acid Level 2.3 Total Creatine Kinase 48 Troponin I 0.03 Prothrombin Time 10.5 Prothromb Time International Ratio 1.0 Activated Partial Thromboplast Time 25.0 Urine Color YELLOW Urine Turbidity HAZY Urine pH 6.5 Urine Specific Badger 1.016 Urine Protein 300 Urine Glucose (UA) NEG Urine Ketones NEG Urine Occult Blood SMALL Urine Nitrite POS Urine Bilirubin NEG Urine Urobilinogen LESS THAN 2.0 Urine Leukocyte Esterase LARGE Urine RBC 4 Urine WBC Urine WBC Clumps MANY Urine Squamous Epithelial Cells <1 Urine Transitional Epithelial Cells 1 Urine Bacteria MANY Urine Hyaline Casts 17 Urine Mucus FEW Microscopic Urinalysis Comment CATH-CULTURE IND Date/Time Source Procedure Growth Status 05/07/17 11:19 Blood Peripheral Aerobic Blood Culture Pending Received 05/07/17 11:19 Blood Peripheral Anaerobic Blood Culture Pending Received 05/07/17 13:30 Urine Catheterized Urine Urine Culture Pending Received Result Diagram: 05/07/17 1119 05/07/17 1119 Imaging Last Impressions Head CT 05/07/17 1108 Signed Impressions: Service Date/Time: Sunday, May 07, 2017 11:30 - CONCLUSION: No acute disease. Andres Daly Jr., MD Chest X-Ray 05/07/17 1108 Signed Impressions: Service Date/Time: Sunday, May 07, 2017 12:12 - CONCLUSION: 1. No acute cardiopulmonary disease. Joseph Alvarez MD Cervical Spine CT 05/07/17 1108 Signed Impressions: Service Date/Time: Sunday, May 07, 2017 11:30 - CONCLUSION: 1. No fracture or dislocation. 2. Degenerative changes as detailed above. Andres Daly Jr., MD Lumbar Spine X-Ray 05/07/17 0000 Signed Impressions: Service Date/Time: Sunday, May 07, 2017 12:10 - CONCLUSION: 1. No acute lumbar spine abnormality is identified. There is degenerative disc disease at L4-L5 and L5-S1 along with facet arthrosis. 2. There is 10 mm of anterolisthesis of L5 on S1. 3. Severe atherosclerotic disease. Travis Conrad MD Carotid Artery Ultrasound 05/07/17 0000 Signed Impressions: Service Date/Time: Sunday, May 07, 2017 15:36 - CONCLUSION: 1. Patent carotid arteries bilaterally. 2. Antegrade flow involving both vertebral arteries. Andres Daly Jr., MD Assessment and Plan Assessment and Plan UTI Lactic acidosis, no t necesarily sepss, could be 2/2 dehydration Encephalopathy -seen by neurologist DFI, diaber=tic neuropahty, no e/o active infection change Ertapnem to Meropnem cont vanco for now\ fu P labs chk bladder residuals Discussed Condition With son @ b/s Marta Montano MD May 07, 2017 17:36
[2017-05-07] MEDS ORDERED: MISCELLANEOUS PHARMACY INFORMATION XX PRN (17:45)
[2017-05-07] MEDS ORDERED: ASP: Documented allergy to Penicillins or Cephalosporins PRN (17:45)
[2017-05-07] MEDS ORDERED: GABAPENTIN 300 MG CAP PO SCH (18:00)
[2017-05-07] MEDS ORDERED: MEROPENEM INJ 1,000 MG in SODIUM CHLORIDE 0.9% INJ 100 ML IV SCH (18:00)
[2017-05-07] MEDS ORDERED: SUCRALFATE 1 GM TAB PO SCH (18:00)
[2017-05-07 18:01] VITALS: BP 153/72; PULSE 98; RESP 17; O2SAT 98
[2017-05-07] MEDS ORDERED: SODIUM CHLORIDE 0.9% FLUSH 10 ML FLUSH IV FLUSH SCH (21:00)
[2017-05-07] MEDS ORDERED: INSULIN DETEMIR 100 UNITS/ML VIAL SQ SCH (21:00)
[2017-05-07] MEDS ORDERED: LACTIC ACID (AMMONIUM LACTATE) 12% LOTION 225 GM BTL TOPICAL SCH (21:00)
[2017-05-07] MEDS ORDERED: cloNIDine HCL 0.1 MG TAB PO SCH (21:00)
[2017-05-07] MEDS ORDERED: ATORVASTATIN 10 MG TAB PO SCH (21:00)
[2017-05-07] MEDS ORDERED: DOCUSATE SODIUM 50 MG/SENNA 8.6 MG TAB PO SCH (21:00)
[2017-05-08] MEDS ORDERED: FERROUS SULFATE 325 MG (65 MG ELEMENTAL IRON) TAB PO SCH (09:00)
[2017-05-08] MEDS ORDERED: ERTAPENEM SODIUM 1000 MG VIAL IM SCH (09:00)
[2017-05-08] MEDS ORDERED: PANTOPRAZOLE SOD 20 MG DELAYED RELEASE TAB PO SCH (09:00)
[2017-05-08] MEDS ORDERED: LISINOPRIL 20 MG TAB PO SCH (09:00)
[2017-05-08 18:09] LABS: HEMOGLOBIN A1C 8.7 % (4.3-6.0)
--- NOTE | 2017-05-08 22:20 | EKG ---
Date Performed: 05/07/2017 Time Performed: 11:19:40 PTAGE: 67 years EKG: Sinus rhythm ST DEVIATION AND MODERATE T-WAVE ABNORMALITY, CONSIDER ANTEROLATERAL ISCHEMIA ABNORMAL ECG NO PREVIOUS TRACING DOCTOR: Mich Baer Interpretating Date/Time 05/08/2017 22:17:57
== END 2017-05-07 18:43 | disposition left against medical advice (07) ==
LOC: NEPC 10:20 → NEDA 14:21
PROVIDERS: ADMIT Hospitalist; ATTEND Hospitalist
DX: E11.621 Type 2 diabetes mellitus with foot ulcer (principal); L97.429 Non-pressure chronic ulcer of left heel and midfoot with unspecified severity; D72.829 Elevated white blood cell count, unspecified; N39.0 Urinary tract infection, site not specified; R00.0 Tachycardia, unspecified; E86.0 Dehydration; G93.49 Other encephalopathy; R55 Syncope and collapse; R47.81 Slurred speech; R29.810 Facial weakness; I10 Essential (primary) hypertension; E78.5 Hyperlipidemia, unspecified; E11.40 Type 2 diabetes mellitus with diabetic neuropathy, unspecified; E11.51 Type 2 diabetes mellitus with diabetic peripheral angiopathy without gangrene; J44.9 Chronic obstructive pulmonary disease, unspecified; R29.6 Repeated falls; R53.1 Weakness; E87.2 Acidosis; K21.9 Gastro-esophageal reflux disease without esophagitis; R94.31 Abnormal electrocardiogram [ECG] [EKG]; M51.36 Other intervertebral disc degeneration, lumbar region; M51.37 Other intervertebral disc degeneration, lumbosacral region; M47.897 Other spondylosis, lumbosacral region; M43.17 Spondylolisthesis, lumbosacral region; M43.16 Spondylolisthesis, lumbar region; E66.01 Morbid (severe) obesity due to excess calories; Z79.4 Long term (current) use of insulin; Z79.899 Other long term (current) drug therapy; Z87.891 Personal history of nicotine dependence; Z89.422 Acquired absence of other left toe(s); Z88.0 Allergy status to penicillin; Z88.8 Allergy status to other drugs, medicaments and biological substances; W19.XXXA Unspecified fall, initial encounter
CPT/HCPCS: 70450; 71045; 72100; 72125; 80053; 81001; 82550; 83036; 83605; 83735; 84484; 85025; 85610; 85652; 85730; 87040; 87077; 87086; 87186; 93005; 93880; 96372; 96374; 96376; 99285; G0378; J0360; J1335; J1650; J3370; J7030; J7040